=== PATIENT | male | born 1990 | race Caucasian/White ===

== ENCOUNTER 2018-04-09 01:58 | Emergency (ER) | payer MEDICAID ==
--- NOTE | 2018-04-09 03:13 | ED PDOC ---
Arrival/HPI - General Chief Complaint: Headache Time Seen by Provider: 04/09/18 02:16 Historian: Patient - History of Present Illness Narrative History of Present Illness (Text): 04/09/18 03:10 A 27 year old patient, with no significant past medical history, presents to the emergency department for evaluation of generalized muscle aches and slight headache. The patient states that he has been overworking and notes that he has not been getting enough sleep. The patient denies fevers, chills, headache, dizziness, sore throat, cough, chest pain, shortness of breath, dyspnea on exertion, abdominal pain, nausea, vomiting, diarrhea, neck/back pain, urinary/ bowel changes, trauma, or any other complaint. Time/Duration: Prior to Arrival Symptom Onset: Sudden Symptom Course: Unchanged Activities at Onset: Rest, Light Context: Home Past Medical History - Provider Review Nursing Documentation Reviewed: Yes - Infectious Disease Hx of Infectious Diseases: None - Cardiac Hx Cardiac Disorders: No - Psychiatric Hx Substance Use: No - Anesthesia Hx Anesthesia: No Family/Social History - Physician Review Nursing Documentation Reviewed: Yes Family/Social History: No Known Family HX Smoking Status: Never Smoked Hx Alcohol Use: No Hx Substance Use: No Allergies/Home Meds Allergies/Adverse Reactions: Allergies No Known Allergies Allergy (Verified 04/09/18 02:13) Review of Systems - Physician Review All systems were reviewed & negative as marked: Yes - Review of Systems Constitutional: absent: Fevers ENT: absent: Sore Throat Respiratory: absent: SOB, Cough Cardiovascular: absent: Chest Pain, LOBO Gastrointestinal: absent: Abdominal Pain, Stool Changes, Diarrhea, Nausea, Vomiting Genitourinary Male: absent: Urinary Output Changes Musculoskeletal: Myalgias. absent: Back Pain, Neck Pain Neurological: Headache. absent: Dizziness Physical Exam Vital Signs Reviewed: Yes Vital Signs Temp Pulse Resp BP Pulse Ox 04/09/18 02:30 98.0 F 94 H 16 148/73 100 Temperature: Afebrile Blood Pressure: Normal Pulse: Tachycardic Respiratory Rate: Normal Appearance: Positive for: Well-Appearing, Non-Toxic, Comfortable Pain Distress: None Mental Status: Positive for: Alert and Oriented X 3 - Systems Exam Head: Present: Atraumatic, Normocephalic Pupils: Present: PERRL Extroacular Muscles: Present: EOMI Conjunctiva: Present: Normal Mouth: Present: Moist Mucous Membranes Neck: Present: Normal Range of Motion Respiratory/Chest: Present: Clear to Auscultation, Good Air Exchange. No: Respiratory Distress, Accessory Muscle Use Cardiovascular: Present: Regular Rate and Rhythm, Normal S1, S2. No: Murmurs Abdomen: No: Tenderness, Distention, Peritoneal Signs Back: Present: Normal Inspection Upper Extremity: Present: Normal Inspection. No: Cyanosis, Edema Lower Extremity: Present: Normal Inspection. No: Edema Neurological: Present: GCS=15, CN II-XII Intact, Speech Normal Skin: Present: Warm, Dry, Normal Color. No: Rashes Psychiatric: Present: Alert, Oriented x 3, Normal Insight, Normal Concentration Medical Decision Making ED Course and Treatment: 04/09/18 03:12 Impression: A 27 year old male presents to the emergency department with a complaint of headache and muscle aches. Plan: -- Flexeril and Toradol -- Reassess and disposition Prior Visits: Notes and results from previous visits were reviewed. Progress Notes: - Medication Orders Current Medication Orders: Discontinued Medications Cyclobenzaprine HCl (Flexeril) 10 mg PO ONCE ONE Stop: 04/09/18 03:11 Last Admin: 04/09/18 03:32 Dose: 10 mg Ketorolac Tromethamine (Toradol) 60 mg IM ONCE ONE Stop: 04/09/18 03:11 Last Admin: 04/09/18 03:32 Dose: 60 mg MAR Pain Assessment Document 04/09/18 03:32 IT (Rec: 04/09/18 03:32 IT [id number]) Pain Reassessment Is this a pain reassessment? No Sleep Is patient sleeping during reassessment? No Presence of Pain Presence of Pain Yes Pain Scale Used Pain Scale Used Numeric IM Administration Charges Document 04/09/18 03:32 IT (Rec: 04/09/18 03:32 IT [id number]) Injection Site MAR Injection Site Left Deltoid Charges for Administration # of IM Administrations 1 - Scribe Statement The provider has reviewed the documentation as recorded by the Nikhil Sanchez Provider Scribe Attestation: All medical record entries made by the Scribe were at my direction and personally dictated by me. I have reviewed the chart and agree that the record accurately reflects my personal performance of the history, physical exam, medical decision making, and the department course for this patient. I have also personally directed, reviewed, and agree with the discharge instructions and disposition. Disposition/Present on Arrival - Present on Arrival Any Indicators Present on Arrival: No History of DVT/PE: No History of Uncontrolled Diabetes: No Urinary Catheter: No History of Decub. Ulcer: No History Surgical Site Infection Following: None - Disposition Have Diagnosis and Disposition been Completed?: Yes Diagnosis: Headache, Myalgia Disposition: HOME/ ROUTINE Disposition Time: 05:59 Patient Plan: Discharge Condition: GOOD Discharge Instructions (ExitCare): Tension Headache (DC), Muscle and Bone Pain (DC) Additional Instructions: Rest/take meds as prescribed/follow up with your doctor this week Prescriptions: Cyclobenzaprine [Cyclobenzaprine HCl] 10 mg PO TID PRN #15 tab PRN Reason: Muscle Spasm Ibuprofen [Motrin] 600 mg PO Q8 PRN #15 tab PRN Reason: Pain, Moderate (4-7) Forms: [facility] (Arabic), WORK NOTE
[2018-04-09 06:28] VITALS: BP 115/82; PULSE 72; RESP 16; TEMP 98; O2SAT 100
== END 2018-04-09 06:28 | disposition home or self-care (01) ==
LOC: ED 01:58
DX: R51 Headache (principal); M79.1 Myalgia
CPT/HCPCS: 96372; 99285; J1885

== ENCOUNTER 2018-04-09 19:23 | Emergency (ER) | payer MEDICAID ==
[2018-04-09 19:34] VITALS: BMI 20.1
[2018-04-09 19:45] VITALS: BP 136/71; O2SAT 100
--- NOTE | 2018-04-09 20:02 | ED PDOC ---
Arrival/HPI - General Chief Complaint: Back Pain Time Seen by Provider: 04/09/18 19:45 Historian: Patient - History of Present Illness Narrative History of Present Illness (Text): 04/09/18 27 yo male come in for re-evaluation of " tension in my neck and upper back from no sleep for past few days'. Pt reports, pain is intermittent, " tightness ", worse with movement. Pt admits, "feels depressed, sister moved back to [place] ". Otherwise, pt denies known trauma or injury, fever, chills, headache, dizziness, CP, SOB, dyspnea, diaphoresis,palpitation, abd. pain, N/V/D, back pain, UTIs x, denies weakness, sensory or vascular deficits to B?L UEs and LEs, pt denies suicidal or homocidal ideation, denies drug abuse. Ambulate to Ed, not in any apparent distress. previous ED visits review, pt was seen early today due to same complaints. Pt was given Rx: Flexeril, Ibuprofen. Past Medical History - Provider Review Nursing Documentation Reviewed: Yes - Travel History Have you recently traveled outside [place] w/in the past 3 mons?: No - Infectious Disease Hx of Infectious Diseases: None - Tetanus Immunization Tetanus Immunization: Unknown - Cardiac Hx Cardiac Disorders: No - Integumentary Hx Dermatological Disorder: No - Musculoskeletal/Rheumatological Hx Back Pain: Yes - Gastrointestinal Hx Gastrointestinal Disorders: No - Genitourinary/Gynecological Hx Genitourinary Disorders: No - Psychiatric Hx Psychophysiologic Disorder: No Hx Substance Use: No - Anesthesia Hx Anesthesia: No Family/Social History - Physician Review Nursing Documentation Reviewed: Yes Family/Social History: No Known Family HX Smoking Status: Never Smoked Hx Alcohol Use: No Hx Substance Use: No Allergies/Home Meds Allergies/Adverse Reactions: Allergies No Known Allergies Allergy (Verified 04/09/18 19:35) Home Medications: Home Meds Medication Instructions Recorded Confirmed No Known Home Med 04/09/18 04/09/18 Review of Systems - Review of Systems Constitutional: Normal Eyes: Normal ENT: Normal Respiratory: Normal Cardiovascular: Normal Gastrointestinal: Normal Genitourinary Male: Normal Musculoskeletal: Neck Pain Skin: Normal Neurological: Normal Endocrine: Normal Hemo/Lymphatic: Normal Psychiatric: Anxiety. absent: Suicidal Ideation Physical Exam Vital Signs Reviewed: Yes Vital Signs Temp Pulse Resp BP Pulse Ox 04/09/18 19:44 98.1 F 86 17 136/71 100 Temperature: Afebrile Blood Pressure: Normal Pulse: Regular Respiratory Rate: Normal Appearance: Positive for: Well-Appearing, Non-Toxic, Comfortable Pain Distress: Mild Mental Status: Positive for: Alert and Oriented X 3 - Systems Exam Head: Present: Atraumatic, Normocephalic Conjunctiva: Present: Normal Ears: Present: NORMAL TM Mouth: Present: Moist Mucous Membranes. No: Drooling Pharnyx: No: ERYTHEMA Neck: Present: Normal Range of Motion, Paraspinal Tenderness (mild B/L extend down to upper back), Trachea Midline. No: JVD, Bruit Respiratory/Chest: Present: Clear to Auscultation, Good Air Exchange. No: Respiratory Distress, Accessory Muscle Use Cardiovascular: Present: Regular Rate and Rhythm, Normal S1, S2. No: Murmurs Abdomen: No: Tenderness, Distention, Peritoneal Signs, Rebound, Guarding Back: No: CVA Tenderness Upper Extremity: Present: Normal Inspection, Normal ROM. No: Tenderness, Swelling Lower Extremity: Present: Normal Inspection, Normal ROM. No: Edema, Tenderness , Deformity Neurological: Present: GCS=15, Speech Normal, Normal Sensory Function, Norm Deep Tendon Reflexes Skin: Present: Warm, Dry, Normal Color. No: Rashes Psychiatric: Present: Alert, Oriented x 3, Normal Insight, Normal Concentration Medical Decision Making ED Course and Treatment: 04/09/18 20:36 PES was asked to evaluate patient. After pt was evaluated by community health worker, no further work up recommend, pt was ref. to [facility] for further eval as need On re-eval, pt is afebrile, hemodynamicaly stable. NOn-toxic. PulsEOx 100% rA ENT: no acute findings neck: Suple, (-) JVD Lungs: CTA B/L, BS equal B/L CVS: (+)S1S2, reg. Abd: benign. Neurologicaly intact. Pt has clinical findings c/w cervical strain, anxiety. Pt advised and ref. to f/u with PMD, Psych in 2-3 days for re-eavl. return to ED if any worsening or new changes. - Medication Orders Current Medication Orders: Discontinued Medications Ibuprofen (Motrin Tab) 600 mg PO STAT STA Stop: 04/09/18 20:02 Disposition/Present on Arrival - Present on Arrival Any Indicators Present on Arrival: No History of DVT/PE: No History of Uncontrolled Diabetes: No Urinary Catheter: No History of Decub. Ulcer: No History Surgical Site Infection Following: None - Disposition Have Diagnosis and Disposition been Completed?: Yes Diagnosis: Cervical strain, Anxiety Disposition: HOME/ ROUTINE Disposition Time: 20:10 Patient Plan: Discharge Condition: STABLE Discharge Instructions (ExitCare): Anxiety, Adult (DC), Cervical Muscle Strain Additional Instructions: Follow up with PMD in 2-3 days for re-evaluation. Take medication as need ( was given you previous visit) return to ED if any new changes. Referrals: Meredith Krishna MD [Medical Doctor] - Follow up with primary [facility] [Outside] - Follow up with primary Forms: [employer] ([place]izen [place])
[2018-04-09 21:05] VITALS: PULSE 79; RESP 16; TEMP 98.2
[2018-04-09] MEDS ORDERED: Naloxone 0.4 mg/ml Inj (Adult) ONE (23:02)
== END 2018-04-09 21:02 | disposition home or self-care (01) ==
LOC: ED 19:23
DX: S16.1XXA Strain of muscle, fascia and tendon at neck level, initial encounter (principal); X58.XXXA Exposure to other specified factors, initial encounter; Y92.9 Unspecified place or not applicable; F41.9 Anxiety disorder, unspecified

== ENCOUNTER 2018-04-10 00:58 | Emergency (ER) | payer MEDICAID ==
[2018-04-10] MEDS ORDERED: Naproxen 550 mg Tab PO STA (01:36)
--- NOTE | 2018-04-10 01:55 | ED PDOC ---
Arrival/HPI - General Chief Complaint: Medical Clearance Time Seen by Provider: 04/10/18 01:36 Historian: Patient - History of Present Illness Narrative History of Present Illness (Text): 04/10/18 01:56 27 year old male, with no significant past medical history, who presents to the emergency department complaining of upper back stiffness. Patient requesting pain medication. Patient also notes he does have a home, but doesn't like staying there because he's alone. Patient states she usually stays with his brother but since his brother is at work he can't get in. Patient denies any fever, chills, trauma, injury, sob, cp, neck pain, bowel/bladder incontinence, weakness, numbness, or any other complaints. Time/Duration: Prior to Arrival Symptom Onset: Gradual Symptom Course: Unchanged Activities at Onset: Light Context: Home Past Medical History - Provider Review Nursing Documentation Reviewed: Yes - Infectious Disease Hx of Infectious Diseases: None - Tetanus Immunization Tetanus Immunization: Unknown - Cardiac Hx Cardiac Disorders: No - Integumentary Hx Dermatological Disorder: No - Musculoskeletal/Rheumatological Hx Back Pain: Yes - Gastrointestinal Hx Gastrointestinal Disorders: No - Genitourinary/Gynecological Hx Genitourinary Disorders: No - Psychiatric Hx Psychophysiologic Disorder: No Hx Substance Use: No - Anesthesia Hx Anesthesia: No Family/Social History - Physician Review Nursing Documentation Reviewed: Yes Family/Social History: Unknown Family HX Smoking Status: Never Smoked Hx Alcohol Use: No Hx Substance Use: No Allergies/Home Meds Allergies/Adverse Reactions: Allergies No Known Allergies Allergy (Verified 04/09/18 19:35) Home Medications: Home Meds Medication Instructions Recorded Confirmed No Known Home Med 04/09/18 04/10/18 Review of Systems - Physician Review All systems were reviewed & negative as marked: Yes - Review of Systems Constitutional: Normal Eyes: Normal ENT: Normal Respiratory: Normal. absent: SOB, Cough Cardiovascular: Normal. absent: Chest Pain Gastrointestinal: Normal. absent: Abdominal Pain Genitourinary Male: Normal. absent: Dysuria, Frequency Musculoskeletal: Back Pain (upper back stiffness). absent: Neck Pain Skin: Normal. absent: Rash Neurological: Normal. absent: Headache, Dizziness Endocrine: Normal Hemo/Lymphatic: Normal Psychiatric: Normal Physical Exam Vital Signs Reviewed: Yes Temperature: Afebrile Blood Pressure: Normal Pulse: Regular Respiratory Rate: Normal Appearance: Positive for: Well-Appearing, Non-Toxic, Comfortable Pain Distress: None Mental Status: Positive for: Alert and Oriented X 3 - Systems Exam Head: Present: Atraumatic, Normocephalic Pupils: Present: PERRL Extroacular Muscles: Present: EOMI Conjunctiva: Present: Normal Mouth: Present: Moist Mucous Membranes Neck: Present: Normal Range of Motion Respiratory/Chest: Present: Clear to Auscultation, Good Air Exchange. No: Respiratory Distress, Accessory Muscle Use Cardiovascular: Present: Regular Rate and Rhythm, Normal S1, S2. No: Murmurs Abdomen: No: Tenderness, Distention, Peritoneal Signs Back: Present: Normal Inspection Upper Extremity: Present: Normal Inspection. No: Cyanosis, Edema Lower Extremity: Present: Normal Inspection. No: Edema Neurological: Present: GCS=15, CN II-XII Intact, Speech Normal Skin: Present: Warm, Dry, Normal Color. No: Rashes Psychiatric: Present: Alert, Oriented x 3, Normal Insight, Normal Concentration Medical Decision Making ED Course and Treatment: 04/10/18 01:59 Impression: 27 year old male presents to the Emergency department complaining of upper back stiffness today. Plan: -- Flexeril -- Anaprox -- Reassess and disposition Progress Notes: Previous visits reviewed, with similar symptoms. Patient given pain medication. Advised to follow up with referral provided. - Medication Orders Current Medication Orders: Discontinued Medications Cyclobenzaprine HCl (Flexeril) 5 mg PO STAT STA Stop: 04/10/18 01:37 Last Admin: 04/10/18 02:09 Dose: 5 mg Naproxen (Anaprox Ds) 550 mg PO ONCE STA Stop: 04/10/18 01:37 Last Admin: 04/10/18 02:09 Dose: 550 mg - PA / VETERAN APPEALS REVIEWER / Resident Statement MD/DO has reviewed & agrees with the documentation as recorded. - Scribe Statement The provider has reviewed the documentation as recorded by the Neilibsincere Virgen All medical record entries made by the Scribsincere were at my direction and personally dictated by me. I have reviewed the chart and agree that the record accurately reflects my personal performance of the history, physical exam, medical decision making, and the department course for this patient. I have also personally directed, reviewed, and agree with the discharge instructions and disposition. Disposition/Present on Arrival - Present on Arrival Any Indicators Present on Arrival: No History of DVT/PE: No History of Uncontrolled Diabetes: No Urinary Catheter: No History of Decub. Ulcer: No History Surgical Site Infection Following: None - Disposition Have Diagnosis and Disposition been Completed?: Yes Diagnosis: Back pain Disposition: HOME/ ROUTINE Disposition Time: 02:00 Patient Plan: Discharge Patient Problems: Current Active Problems Problem Status Onset Back pain Acute Condition: STABLE Discharge Instructions (ExitCare): Upper Back Pain (DC) Additional Instructions: Thank you for letting us take care of you today. You were treated for back pain. The emergency medical care you received today was directed at your acute symptoms. Return to the Emergency Department if your symptoms worsen, do not improve, or if you have any other problems. Please contact your doctor in 2 days for re-evaluation and follow up / or call one of the physicians/clinics you have been referred to that are listed on the Patient Visit Information form that is included in your discharge packet. Bring any paperwork you were given at discharge with you along with any medications you are taking to your follow up visit. Our treatment cannot replace ongoing medical care by a primary care provider (PCP) outside of the emergency department. Thank you for allowing the [facility] team to be part of your care today. Referrals: [facility] [Outside] - Follow up with primary Forms: [employer] (Ugandan)
[2018-04-10 07:22] VITALS: BP 132/68; PULSE 79; RESP 16; TEMP 98; O2SAT 100
== END 2018-04-10 05:30 | disposition home or self-care (01) ==
LOC: ED 00:58
DX: M54.6 Pain in thoracic spine (principal)